=== PATIENT | female | born 1930 | race Caucasian/White ===

== ENCOUNTER 2019-06-17 11:06 | Inpatient (IN) | payer MEDICARE, OTHER ==
[~2019-06-17] VITALS: Ht 160 cm; Wt 59.1 kg
[2019-06-17] MEDS ORDERED: GABAPENTIN300 MG PO (11:43)
[2019-06-17] MEDS ORDERED: LEVOXYL125 MCG (11:44)
[2019-06-17] MEDS ORDERED: MIRALAX17 GM PO (11:45)
[2019-06-17] MEDS ORDERED: LISINOPRIL20 MG (11:45)
[2019-06-17] MEDS ORDERED: OS-CAL500 MG (11:46)
[2019-06-17] MEDS ORDERED: PAMELOR10 MG (11:47)
[2019-06-17] MEDS ORDERED: PAMELOR10 MG PO (11:48)
[2019-06-17] MEDS ORDERED: PROTONIX40 MG PO (11:49)
[2019-06-17] MEDS ORDERED: VITAMIN D10000 UNI1 ×2 (11:51→11:52)
[2019-06-17] MEDS ORDERED: VOLTAREN100 GM (11:52)
[2019-06-17] MEDS ORDERED: ZOLOFT100 MG (11:53)
[2019-06-17 13:54] VITALS: BP 148/89; BMI 22.4
--- NOTE | 2019-06-17 16:50 | NUR ---
PATIENT ARRIVED TO UNIT VIA EMS FROM [facility]. PT STABLE AT TIME OF ADMIT. PT HAS INTERMITT CONFUSION. PT WAS ALERT TO SELF ONLY AT THIS TIME. PT CAN STAND AND AMBULATE SHORT DISTANCES WITH ASSIST. CODE STATUS: DNR. CODE WORD GIVEN TO DAUGHTER. FLU SHOT: 03/03/19. ARM BANDS PLACED. W/C ASSIST.
[2019-06-17 17:22] LABS: BILIRUBIN NEGATIVE (NEGATIVE); GLUCOSE NEGATIVE (NEGATIVE); KETONE NEGATIVE (NEGATIVE); NITRITE NEGATIVE (NEGATIVE); UROBILINOGEN NORMAL (NORMAL)
[2019-06-17 20:00] VITALS: BP 153/68
[2019-06-18 07:06] LABS: ALBUMIN 3.5 g/dL (3.4-5.0); ANION GAP 12.1 mmol/L (8-16); BILIRUBIN - TOTAL 0.44 mg/dL (0.2-1.3); CALCIUM 8.9 mg/dL (8.5-10.1); CARBON DIOXIDE 28.2 mmol/L (21.0-32.0); CHOL - HDL RATIO 3.6 ratio (2.3-4.1); CREATININE - SERUM 1.1 mg/dL (0.6-1.3); LDL-HDL RATIO 2.1 ratio (1.5-3.5); POTASSIUM - SERUM 3.3 mmol/L (3.5-5.1); PROTEIN - SERUM 7.5 g/dL (6.4-8.2); THYROID STIMULATING HORMONE 6.18 uIU/mL (0.36-3.74)
--- NOTE | 2019-06-18 08:55 | NUR ---
The patient asked "Can I please have something to eat, I haven't eaten in 24 hours." Tried to explain to her that the patient ate yesterday dinner. She denies ever eating since she got her. She has poor insight into her situation. Provide prescribed meds. The patient is in a w/c and she is very confused. She is oriented to self only. Provide prescribed meds. Redirect as needed. She has not shown any aggression today. Continue POC.
[2019-06-18 13:00] VITALS: Ht 160 cm; Wt 59.1 kg
--- NOTE | 2019-06-19 00:22 | NUR ---
B.) PT IS ALERT AND ORIENTED TO SELF AND SITUATION. SHE IS PLEASANT WITH PEERS. SHE IS CALM AND COOPERATIVE WITH STAFF. SHE IS ABLE TO MAKE HER NEEDS KNOWN AND AMBULATE WITH WHEELCHAIR. I.) PROVIDED PM MEDICATIONS PRESCRIBED. REDIRECT OFTEN. R.) COMPLIANT WITH ALL MEDICATIONS. EASY TO REDIRECT. P.) WILL CONTINUE TO MONITOR.
--- NOTE | 2019-06-19 07:02 | NUR ---
The patient is awake, she is sitting in the w/c, she is confused, she is oriented to self. She has poor insight into her situation. She says she doesn't need to be here then she says "I know you hear that all the time." She has not been aggressive this am. Provide prescribed meds. Continue POC.
--- NOTE | 2019-06-19 13:53 | PN ---
PATIENT:DEBI MAGALLANES MEDICAL RECORD: [id number] LOCATION:[facility] [place] ADMISSION DATE: 06/17/19 PROGRESS NOTE DATE OF SERVICE: 06/18/2019 SUBJECTIVE: Case was discussed with staff. The patient was sitting in a wheelchair at the table. The patient responds with her own and is conversive, stating that she feels okay. OBJECTIVE: Her general appearance is appropriate. Her orientation, she is alert to person, disoriented to place, time or situation. Her speech is soft, low tone, low volume. Her associations are loose. Her eye contact was good. Her judgment and insight are impaired. Thought and concentration is tangential. Her mood is depressed and anxious, easily agitated. Her affect is flat and narrow in range. Her anxiety is moderate. Her memory is poor for both recent and remote events. The patient does not appear to be attending with any visual or auditory hallucinations. Her judgment is poor. Impulsivity is high. ASSESSMENT: Major neurocognitive disorder of the Alzheimer's type. PLAN: Continue to monitor the patient's mood, thoughts, intolerance to medications to help keep the patient safe. We will continue to monitor her sleep and her appetite and assist her with her activities of daily living. Dictated By: Alondra Martinez APN I have interviewed/examined the above patient and agree with these documented findings. TRANSINT:[id number] Voice Confirmation ID: [id number] DOCUMENT ID: [id number] YOSEF REED MD at 1658 at 1353 CC: [id number] DICTATION DATE: 06/18/19 1740 WATER OPERATOR: 06/19/19 0059 ADM IN [facility] [address] [place] [address]
[2019-06-19 15:35] LABS: BASOPHILS 0.1 % (0-2); EOSINOPHILS 1.4 % (0-7); HEMATOCRIT 33.5 % (36.0-48.0); HEMOGLOBIN 10.3 g/dL (12-16); IMMATURE GRANULOCYTES 0.1 % (0-5); LYMPHOCYTES 13.5 % (15-50); MCH 30.7 pg (26.0-34.0); MCHC 30.7 g/dL (31.0-37.0); MEAN PLATELET VOLUME 9.3 fL (7.4-10.4); MONOCYTES 7.6 % (2-11); NEUTROPHILS 77.3 % (40-80); PLATELET COUNT 338 10x3/uL (130-400); RBC 3.35 10x6/uL (4.00-5.40); RDW 16.9 % (11.5-14.5); WBC 6.9 10x3/uL (4.8-10.8)
--- NOTE | 2019-06-19 19:52 | NUR ---
RECEIVED IN DAYROOM. SITTING IN A RECLINER WITH PEERS AT HIS SIDE. CALM AND COOPERATIVE WITH CARE AND ASSESSMENT. NO SIGNS OF AGGRESSION. REDIRECT AND REORIENT NEEDED. CONTINUE TO SIT CALMLY IN DAYROOM. CONTINUE PLAN OF CARE
--- NOTE | 2019-06-20 07:51 | NUR ---
The patient is awake and alert she is pleasnt, but she c/o her entire body hurts and that she has a sore throat. The patient is up in a w/c and she can self propel. Encourage group participation and provide prescribed meds. the patient is confused and she has poor insight into her situation. Provide prescribed meds.
--- NOTE | 2019-06-20 16:58 | PSY ---
PATIENT NAME:DEBI MAGALLANES MEDICAL RECORD: [id number] : 34 LOCATION:[facility] [place] ADMISSION DATE: 06/17/19 ACCOUNT: [id number] PSYCHIATRIC EVALUATION DATE OF EVALUATION: 06/17/19 IDENTIFYING DATA: The patient is 88 years old and she is admitted to the hospital on a voluntary basis. CHIEF COMPLAINT: Agitation. HISTORY OF PRESENT ILLNESS: The patient is referred to us by family. Apparently, she has been confused, agitated, and aggressive. Unfortunately, the patient is not able to provide much in the way of useful information. She is only oriented to person and at least when I speak to her she is calm. PAST MEDICAL HISTORY: Significant for hypertension, osteoarthritis, and hypothyroidism. PAST PSYCHIATRIC HISTORY: Unknown; however, the patient is taking an antidepressant medication. FAMILY HISTORY: Unknown. ALLERGIES: TETANUS TOXOID, CODEINE AND TRAMADOL. CURRENT MEDICATIONS: Include Pamelor, Zoloft, Protonix, MiraLax, gabapentin, and lisinopril. SOCIAL HISTORY: The patient is from [place]. She is single and has no children. I do not know if she has been in the past. She is only partially oriented. She does have a high school education and did work as a court advocate. She has no history of drug or alcohol abuse. MENTAL STATUS EXAMINATION: The patient is awake, alert and oriented to person and place, but not to time or situation. Her mood is flat. Her affect is constricted. Thought processes are disorganized. Memory, concentration, and abstraction abilities are moderately impaired and she denies any active intent to harm herself or others as well as any overt psychotic symptoms. ASSESSMENT: AXIS I: Major neurocognitive disorder of the Alzheimer's type. AXIS II: None. AXIS III: Hypertension, osteoarthritis, hypothyroidism. AXIS IV: Moderate. AXIS V: Global assessment of functioning is 30. PLAN: At this time, the patient is admitted to the hospital secondary to aggressive behavior. She will be monitored for clinical changes associated with this. Her long-term prognosis is guarded. TRANSINT:[id number] Voice Confirmation ID: [id number] DOCUMENT ID: [id number] YOSEF REED MD at 1659 CC: [id number] DICTATION DATE: 06/17/19 1527 CHIROPRACTIC PRACTICE MANAGER: 06/17/19 1555 ADM IN [facility] [address] [facility]
--- NOTE | 2019-06-20 16:58 | PN ---
PATIENT:DEBI MAGALLANES MEDICAL RECORD: [id number] LOCATION:[facility] [place] ADMISSION DATE: 06/17/19 PROGRESS NOTE DATE OF SERVICE: 06/19/2019 SUBJECTIVE: The case was discussed with staff. The patient is sitting in a wheelchair at the table. The patient is conversive and she states that she would like to have an state's attorney because she has been plugged off. 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 OBJECTIVE: Her general appearance is slightly disheveled. She is oriented to person and alert, disoriented to place, time or situation. Her speech is soft, low tone, low volume. Her associations are intact. Her eye contact is good. Her judgment and insight are impaired. Impulsivity is high. Her thought and concentration, she is distracted with tangential thought. Her mood is depressed and anxious. Her affect is flat and narrow in range. Anxiety is mild. Her memory is poor for both recent and remote events. The patient does not appear to be attending to visual or auditory hallucinations. ASSESSMENT: No change in diagnosis PLAN: We will continue to monitor the patient's mood, monitor her sleep, her sleep tolerance to medications, and to help keep the patient safe. We will continue to monitor her sleep, her appetite and assist her with her activities of daily living. Dictated By: Alondra Martinez APN I have interviewed/examined the above patient and agree with these documented findings. TRANSINT:[id number] Voice Confirmation ID: [id number] DOCUMENT ID: [id number] YOSEF REED MD at 1658 at 1717 CC: [id number] DICTATION DATE: 06/19/19 1432 WARDROBE STYLIST: 06/19/19 2153 ADM IN [facility] [address] [place] [address]
--- NOTE | 2019-06-20 19:50 | NUR ---
RECEIVED IN DAYROOM. SITTING IN A CHAIR WITH PEERS AT HER SIDE. CALM AND COOPERATIVE WITH CARE. NO SIGNS OF AGGRESSION. REDIRECT AND REORIENT NEEDED. RESTING QUIETLY IN BEDROOM AT THIS TIME. CONTINUE PLAN OF CARE
--- NOTE | 2019-06-21 08:30 | NUR ---
RECEIVED IN HALLWAY OUTSIDE OF NURSES STATION. CALM AND COOPERATIVE WITH CARE AND ASSESSMENT. NO BEHAVIORS. REDIRECT AND REORIENT NEEDED. EATING BREAKFAST AT THIS TIME. CONTINUE PLAN OF CARE.
--- NOTE | 2019-06-21 14:48 | PN ---
PATIENT:DEBI MAGALLANES MEDICAL RECORD: [id number] LOCATION:[facility] ADMISSION DATE: 06/17/19 PROGRESS NOTE DATE OF SERVICE: 06/20/2019 SUBJECTIVE: The case was discussed with staff. The patient is sitting in a wheelchair. The patient is conversive and is pleasantly confused. The patient does report that she has a sore in her mouth, but is able to still eat just a little slower. OBJECTIVE: Her general appearance is slightly disheveled. She is oriented to person, disoriented to place, time and situation. Her speech is soft, low tone, low volume. Her associations are loose. Her eye contact is good. Her judgment and insight are impaired with impulsivity high. Her thought concentration is distracted with tangential thought. Her mood is depressed and anxious. Her affect is flat and narrow in range. Her anxiety is mild. Her memory is poor for both recent and remote events. The patient does not appear to be attending to visual or auditory hallucination. ASSESSMENT: No change from previous diagnosis. PLAN: We will continue to monitor the patient's mood and work to stabilize her aggression, her impulsivity, her mood, and her thought. TRANSINT:[id number] Voice Confirmation ID: [id number] DOCUMENT ID: [id number] YOSEF REED MD at 1448 at 1236 CC: [id number] DICTATION DATE: 06/20/19 1546 VP TALENT MANAGEMENT: 06/20/19 2328 ADM IN [place] [id number] [place] [address]
--- NOTE | 2019-06-21 20:01 | NUR ---
RECEIVED IN DAYROOM. SITTING QUIETLY IN A CHAIR WITH PEERS AT HER SIDE. CALM AND COOPERATIVE WITH CARE AND ASSESSMENT. NO SIGNS OF AGGRESSION. REDIRECT AND REORIENT NEEDED. CONTINUES TO SIT CALMLY. CONTINUE PLAN OF CARE
[2019-06-21 20:49] VITALS: BP 122/64
[2019-06-22 08:33] VITALS: BP 121/71
--- NOTE | 2019-06-22 10:43 | NUR ---
Nutrition Follow-up: Diet: Cardiac, Regular texture PO intake: ~58% average x last 10 meals Last BM: 06/22/19. WT: 125# (06/20/19); Admit WT: 126# (06/17/19) Meds noted: miralax. Labs noted. Recommend continue current diet, may consider liberalizing diet to regular 2/2 advanaced age and subpar PO intake. Will add oral nutrition supplements. Encourage PO intake. RD following.
--- NOTE | 2019-06-22 15:04 | PN ---
PATIENT:DEBI MAGALLANES MEDICAL RECORD: [id number] LOCATION:[facility] [place] ADMISSION DATE: 06/17/19 PROGRESS NOTE DATE OF SERVICE: 06/21/2019 SUBJECTIVE: The patient's case was discussed with staff. She has no new complaint. OBJECTIVE: The patient has not been aggressive today. She is eating reasonably well and it does require a great deal of encouragement from the staff to convince her to eat adequately. ASSESSMENT: Dementia. PLAN: The patient will be maintained on current medications, which I have reviewed. Her long-term prognosis is guarded. TRANSINT:[id number] Voice Confirmation ID: [id number] DOCUMENT ID: [id number] YOSEF REED MD at 1504 CC: [id number] DICTATION DATE: 06/21/19 171 V BELT SKIVER: 06/21/[address] [facility] [address] [place] [id number]
--- NOTE | 2019-06-22 19:49 | NUR ---
RECEIVED IN DAYROOM. SITTING IN A CHAIR WITH PEERS AT HER SIDE. CALM AND COOPERATIVE WITH CARE AND ASSESSMENT. NO SIGNS OF AGGRESSION. REDIRECT AND REORIENT NEEDED. CONTINUES TO REST QUIETLY IN DAYROOM. CONTINUE PLAN OF CARE
[2019-06-22 20:32] VITALS: BP 131/71
--- NOTE | 2019-06-23 08:30 | NUR ---
RECEIVED IN HALLWAY OUTSIDE OF NURSES STATION. CALM AND COOPERATIVE WITH CARE AND ASSESSMENT. NO BEHAVIORS. REDIRECT AND REORIENT NEEDED. WAITING FOR BREAKFAST AT THIS TIME. CONTINUE PLAN OF CARE.
[2019-06-23 10:21] VITALS: BP 147/87
--- NOTE | 2019-06-23 13:50 | PN ---
PATIENT:DEBI MAGALLANES MEDICAL RECORD: [id number] LOCATION:REGINA [place] ADMISSION DATE: 06/17/19 PROGRESS NOTE DATE OF SERVICE: 06/22/2019 SUBJECTIVE: The patient's case was discussed with staff. She has no new complaint. OBJECTIVE: The patient has pretty limited insight about her situation. She is only partially oriented. She has been in good behavioral control with no significant disruptive behaviors. ASSESSMENT: Dementia. PLAN: Current medicines have been reviewed and will be maintained. Her long-term prognosis is guarded. TRANSINT:[id number] Voice Confirmation ID: [id number] DOCUMENT ID: [id number] YOSEF REED MD at 1350 CC: [id number] DICTATION DATE: 06/22/19 1542 SHOES SALESPERSON: 06/22/19 1808 ADM IN [facility] [address] [place] [address]
--- NOTE | 2019-06-23 20:53 | NUR ---
RECEIVED IN HALLWAY OUTSIDE OF NURSES STATION. CALM AND COOPERATIVE WITH CARE AND ASSESSMENT. NO BEHAVIORS THIS EVENING. REDIRECT AND REORIENT NEEDED. RESTING IN BED WITH EYES CLOSED AT THIS TIME. CONTINUE PLAN OF CARE.
[2019-06-23 21:59] VITALS: BP 150/64
--- NOTE | 2019-06-24 09:01 | PN ---
PATIENT:DEBI MGAALLANES MEDICAL RECORD: [id number] LOCATION:REGINA [place] ADMISSION DATE: 06/17/19 PROGRESS NOTE DATE OF SERVICE: 06/23/2019 SUBJECTIVE: The patient's case was discussed with staff. She has no new complaint. OBJECTIVE: The patient is in good behavioral control. She has pretty limited insight about her situation and is tolerating her medicines well. ASSESSMENT: No change in diagnoses. PLAN: Brief supportive and educational interventions were made. Long-term prognosis is guarded. TRANSINT:[id number] Voice Confirmation ID: [id number] DOCUMENT ID: [id number] YOSEF REED MD at 0901 CC: [id number] DICTATION DATE: 06/23/19 1504 ASSOCIATE ENTERTAINMENT EDITOR: 06/23/19 2328 ADM IN [id number] [place] [address]
--- NOTE | 2019-06-24 11:11 | NUR ---
Nutrition Follow-up: Chart reviewed. Noted patient with ulcer in gum area and pain with eating. Diet: Cardiac + Ensure TID PO intake: ~50% average x last 12 meals; drinking some of the Ensure. Last BM: 06/23/19. WT: 125# (06/20/19); Admit WT: 126.6# (06/17/19) Meds noted: orajel, miralax. Labs noted. Recommend continue current diet and oral nutrition supplement. Hopefully PO intake will improve once mouth ulcer resolves. May consider liberalizing diet to regular to encourage PO intake. MD, consider appetite stimulant if PO intake does not improve. RD following.
[2019-06-24 11:40] VITALS: BP 156/89
--- NOTE | 2019-06-24 16:26 | NUR ---
PT SITTING IN CHAIR WITH FEET PROPPED UP AT THIS TIME. NO ACUTE DISTRESS NOTED AT THIS TIME. PT HAS BEEN COOPERATIVE AND QUIET AT THIS TIME. PT IS COMPLIANT WITH MEDS, VITALS AND ASSESSMENTS. NO DISTRESS NOTED. PT HAS NO BEHAVIORS NOTED. CHAIR ALARM IN PLACE AND ACTIVE. WILL CONT PLAN FO CARE.
[2019-06-24 20:44] VITALS: BP 136/53
--- NOTE | 2019-06-24 21:59 | NUR ---
B.) PT IS ALERT AND ORIENTED TO SELF AND SITUATION ONLY. SHE IS RECEIVED IN THE DAYROOM IN HER WHEELCHAIR. SHE IS OBSERVED SOCIALIZING WITH PEERS. SHE IS CALM AND COOPERATIVE WITH STAFF. I.) PROVIDED PM MEDICATIONS PRESCRIBED. REDIRECT NEEDED. R.) COMPLIANT WITH ALL MEDICATIONS. EASY TO REDIRECT. P.) WILL CONTINUE TO MONITOR.
[2019-06-25 10:29] VITALS: BP 172/95
--- NOTE | 2019-06-25 13:56 | NUR ---
ALERT, CALM, PLEASANT AND COOPERATIVE. NO AGGRESSION NOTED. MEDS ADMIN PER ORDERS WITH COMPLETE MED COMPLIANCE NOTED. NO ADVERSE BEHAVIORS NOTED. CONT PLAN OF CARE DIRECTED. SHOWER GIVEN FOLLOWING INCONTINENCE OF STOOL.
--- NOTE | 2019-06-25 14:02 | NUR ---
ALERT, CALM, COOPERATIVE, POLITE. COMPLIANT WITH MEDICATIONS. NO ADVERSE BEHAVIORS NOTED. CONT. POC DIRECTED.
[2019-06-25 20:00] VITALS: BP 124/65
--- NOTE | 2019-06-25 22:55 | NUR ---
PATIENT INTERACTS WELL WITH 1-2 OTHER PATIENTS, QUIET, TAKES MEDS WITHOUT DIFFICULTY, NO AGGRESSION NOTED, MAKES NEEDS KNOWN. WILL FOLLOW POC
--- NOTE | 2019-06-26 07:47 | NUR ---
The patient is awake and she is pleasant she has poor insight into her situation. She is oriented to person and place. She is able to self propel in a w/c. Provide prescribed meds. The patient is compliant with meds. She has poor short term memory. Continue POC.
[2019-06-26 10:46] VITALS: BP 140/70
[2019-06-26 20:48] VITALS: BP 127/48
--- NOTE | 2019-06-26 20:54 | NUR ---
PATIENT WAS SITTING QUIETLY IN DAYROOM, SHE DOES INTERACT WITH ONE OTHER PATIENT QUITE WELL, COMPLIANT WITH MED, NO ADVERSE REACTION NOTED, WILL FOLLOW POC
--- NOTE | 2019-06-27 09:11 | NUR ---
RECEIVED IN HALLWAY OUTSIDE OF NURSES STATION. CALM AND COOPERATIVE WITH CARE AND ASSESSMENT. NO BEHAVIORS THIS MORNING. REDIRECT AND REORIENT NEEDED. EATING BREAKFAST AT THIS TIME. CONTINUE PLAN OF CARE.
[2019-06-27 10:30] VITALS: BP 133/61
--- NOTE | 2019-06-27 14:39 | PN ---
PATIENT:DEBI MAGALLANES MEDICAL RECORD: [id number] LOCATION:REG[facility] ADMISSION DATE: 06/17/19 PROGRESS NOTE DATE OF SERVICE: 06/25/2019 SUBJECTIVE: The patient's case was discussed with staff. The patient did eat more this morning and she did sleep through the night. She is pleasantly confused. OBJECTIVE: The patient's general appearance is appropriate for an inpatient stay. She is oriented to person, disoriented to place, time, and situation. Her speech is soft, low tone, low volume. Her associations are loose. Her eye contact is good. Her impairment and insight are impaired, impulsivity high. Her judgment is poor. Her thought and concentration is easily distracted. Her mood is depressed. Her affect is restricted. Her anxiety is mild. She has a poor memory for both remote and recent events. The patient does not appear to be attending to either visual or auditory hallucinations. ASSESSMENT: No change in diagnosis. PLAN: The patient is to return to [place]. The patient appears to be tolerating her meds. We will continue with current medication regimen for stabilization of mood. Dictated By: Alondra Martinez APN I have interviewed/examined the above patient and agree with these documented findings. TRANSINT:[id number] Voice Confirmation ID: [id number] DOCUMENT ID: [id number] YOSEF REED MD at 1443 at 1439 CC: [id number] DICTATION DATE: 06/26/19 1252 ASSAULT BOAT [place]IN: 06/26/19 1641 ADM IN [facility] [address] [place] [id number]
--- NOTE | 2019-06-27 14:39 | PN ---
PATIENT:DEBI MAGALLANES MEDICAL RECORD: [id number] LOCATION:REG[facility] ADMISSION DATE: 06/17/19 PROGRESS NOTE DATE OF SERVICE: 06/25/2019 DATE OF SERVICE: 06/25/2019 SUBJECTIVE: The patient's case was discussed with staff. The patient has a decrease in appetite. She did sleep through the night. OBJECTIVE: The patient's general appearance is appropriate for inpatient stay. Her orientation, she is alert, disoriented to person, place, time and situation. Her speech is soft, low tone, low volume. Her associations are loose. Her eye contact is good. Her impairment and insight are impaired. Her judgment is poor. Her thought and concentration, she is easily distracted. Her mood is depressed. Her affect is restricted. Her anxiety is mild. She has poor memory for both remote and recent events. The patient does not appear to be attending to either visual or auditory hallucination. ASSESSMENT: No change in diagnosis. PLAN: The patient to return to [place]; however, she will be changing from independent into assisted living. The patient although has no family, does have care providers that are helping her with this transition. There has been a delay into the assessment process related to the coronavirus. The patient appears to be tolerating her medications. Dictated By: Alondra Martinez APN I have interviewed/examined the above patient and agree with these documented findings. TRANSINT:[id number] Voice Confirmation ID: [id number] DOCUMENT ID: [id number] YOSEF REED MD at 1443 at 1439 CC: [id number] DICTATION DATE: 06/25/19 1256 DRAPERY CUTTER MACHINE: 06/25/19 1413 ADM IN [facility] [address] [place] [address]
[2019-06-27 20:00] VITALS: BP 133/66
--- NOTE | 2019-06-28 01:44 | NUR ---
B) Patient is alert and oriented to person, place and time, calm and cooperative I) Administered scheduled medications as ordered, monitored for needs and wants, R) Medication compliant, pleasant and friendly toward staff, P) Continue plan of care.
--- NOTE | 2019-06-28 09:00 | NUR ---
RECEIVED IN HALLWAY OUTSIDE OF NURSES STATION. CALM AND COOPERATIVE WITH CARE AND ASSESSMENT. PLEASANT. NO BEHAVIORS. REDIRECT AND REORIENT NEEDED. EATING BREAKFAST AT THIS TIME. CONTINUE PLAN OF CARE.
[2019-06-28 09:13] VITALS: BP 153/72
--- NOTE | 2019-06-28 14:43 | PN ---
PATIENT:DEBI MAGALLANES MEDICAL RECORD: [id number] LOCATION:REGINA [place] ADMISSION DATE: 06/17/19 PROGRESS NOTE DATE OF SERVICE: 06/24/2019 SUBJECTIVE: The patient's case was discussed with staff. She has no new complaint. OBJECTIVE: The patient is in good behavioral control. She is severely impaired cognitively and certainly needs 30-ofzx-c-day supervision. There has been no aggressive behavior and if this level of improvement continues, I think she could reasonably be transitioned back to the snf soon. TRANSINT:[id number] Voice Confirmation ID: [id number] DOCUMENT ID: [id number] YOSEF REED MD at 1443 CC: [id number] DICTATION DATE: 06/24/19 1309 COURTESY VAN DRIVER: 06/24/19 1358 ADM IN [facility] [address] [place] [address]
--- NOTE | 2019-06-28 14:43 | PN ---
PATIENT:DEBI MAGALLANES MEDICAL RECORD: [id number] LOCATION:REGINA [facility] ADMISSION DATE: 06/17/19 PROGRESS NOTE DATE OF SERVICE: 06/25/2019 SUBJECTIVE: The patient's case was discussed with staff. The patient did eat more today. She also slept and is sitting in a chair and is conversing with a couple of the other patients. She is pleasantly confused. OBJECTIVE: The patient's general appearance is appropriate for inpatient stay. She is oriented to person, disoriented to place, time and situation. Her speech is soft, low tone low volume. Her associations are loose. Her eye contact is good. Her impairment and insight are impaired. Her impulsivity is moderate. Her judgment is poor. Her thought and concentration is easily distracted. Her mood is depressed. Her affect is restricted. Her anxiety is mild. She has poor memory for both remote and recent events. The patient does not appear to be attending to either visual or auditory hallucinations. ASSESSMENT: No change in diagnosis. PLAN: The patient is to return to [place], [facility] and home medication adjustment on her Namenda. The patient does appear to be tolerating her meds. We will continue to monitor for stabilization of mood and for her safety and plan for a discharge. Dictated By: Alondra Martinez APN I have interviewed/examined the above patient and agree with these documented findings. TRANSINT:[id number] Voice Confirmation ID: [id number] DOCUMENT ID: [id number] YOSEF REED MD at 1443 CC: [id number] DICTATION DATE: 06/27/19 1438 BOX SEALING MACHINE CATCHER: 06/27/19 2114 ADM IN [place] [id number] [place] [address]
[2019-06-28] MEDS ORDERED: VOLTAREN100 GM TOPICAL (16:33)
[2019-06-28] MEDS ORDERED: NAMENDA5 MG PO (16:33)
[2019-06-28] MEDS ORDERED: FOLIC ACID1 MG PO (16:34)
--- NOTE | 2019-06-28 22:36 | NUR ---
B.) PT IS ALERT AND ORIENTED TO SELF AND SITUATION AT TIMES. SHE IS RECEIVED IN THE DAYROOM. SHE IS PLEASANT AND COOPERATIVE WITH STAFF. SHE CAN MAKE HER NEEDS KNOWN. I.) PROVIDED PM MEDICATIONS PRESCRIBED. REDIRECT NEEDED. R.) COMPLIANT WITH ALL MEDICATIONS. EASY TO REDIRECT. P.) WILL CONTINUE TO MONITOR.
[2019-06-29 06:43] VITALS: BP 111/66
[2019-06-29 10:10] VITALS: BP 147/77
--- NOTE | 2019-06-29 10:44 | NUR ---
PATIENT DISCHARGED TO [facility]. PATIENT TRANSPORTED VIA [facility]AN. REPORT GIVEN. DISCHARGE PAPERWORK FAXED TO [facility] AND PCP. HARD COPY SENT WITH PATIENT. MEDICATIONS SENT ELECTRONICALLY TO [facility]. BELONGINGS SENT WITH PATIENT.
--- NOTE | 2019-06-29 14:43 | PN ---
PATIENT:DEBI MAGALLANES MEDICAL RECORD: [id number] [facility] ADMISSION DATE: 06/17/19 PROGRESS NOTE DATE OF SERVICE: 06/28/2019 SUBJECTIVE: The patient's case was discussed with staff. She has no new complaint. OBJECTIVE: The patient is in good behavioral control. She is tolerating her medicines well. She denies that she would seek to harm herself or others. ASSESSMENT: Dementia. PLAN: The patient will be transitioned out of the hospital tomorrow. Her long-term prognosis is guarded. Brief supportive and educational interventions were made. TRANSINT:[id number] Voice Confirmation ID: [id number] DOCUMENT ID: [id number] YOSEF REED MD at 1443 CC: [id number] DICTATION DATE: 06/28/19 163 ABORIGINAL EDUCATION TEACHER: 06/28/19 191 DIS IN 06/29/19 [facility] [address] [place] [address]
== END 2019-06-29 10:45 | disposition home or self-care (01) | DRG 57 ==
LOC: D.PSYCH 11:06
PROVIDERS: Family Medicine; ADMIT Psychiatry & Neurology Psychiatry; ATTEND Psychiatry & Neurology Psychiatry
DX: G30.1 Alzheimer's disease with late onset (principal); F02.81 Dementia in other diseases classified elsewhere, unspecified severity, with behavioral disturbance; F32.9 Major depressive disorder, single episode, unspecified; I10 Essential (primary) hypertension; E78.00 Pure hypercholesterolemia, unspecified; I25.10 Atherosclerotic heart disease of native coronary artery without angina pectoris; K21.9 Gastro-esophageal reflux disease without esophagitis; R26.9 Unspecified abnormalities of gait and mobility; J44.9 Chronic obstructive pulmonary disease, unspecified; K59.00 Constipation, unspecified; G58.9 Mononeuropathy, unspecified; W05.0XXA Fall from non-moving wheelchair, initial encounter; M41.25 Other idiopathic scoliosis, thoracolumbar region; G35 Multiple sclerosis

== ENCOUNTER → 2020-06-27 17:51 | Outpatient (CLI) | payer SELFPAY ==
[2019-06-18 13:00] VITALS: BMI 22.3
[~2020-06-27 17:51] MED LIST: FOLIC ACID1 MG PO; GABAPENTIN300 MG PO; LEVOXYL125 MCG; LISINOPRIL20 MG; MIRALAX17 GM PO; NAMENDA5 MG PO; OS-CAL500 MG; PAMELOR10 MG; PAMELOR10 MG PO; PROTONIX40 MG PO; VITAMIN D10000 UNI1; VOLTAREN100 GM; VOLTAREN100 GM TOPICAL; ZOLOFT100 MG
[2020-06-27 19:47] LABS: BASOPHILS 0.6 % (0-2); EOSINOPHILS 3.7 % (0-7); HEMATOCRIT 30.4 % (36.0-48.0); IMMATURE GRANULOCYTES 0.3 % (0-5); LYMPHOCYTE ABS# 1.06 10x3/uL (1.18-3.74); MCH 30.1 pg (26.0-34.0); MCHC 29.6 g/dL (31.0-37.0); MCV 101.7 fL (80.0-100.0); MEAN PLATELET VOLUME 10.3 fL (7.4-10.4); NEUTROPHIL ABS# 4.38 10x3/uL (1.56-6.13); NEUTROPHILS 70.4 % (40-80); RBC 2.99 10x6/uL (4.00-5.40); RDW 17.9 % (11.5-14.5); WBC 6.2 10x3/uL (4.8-10.8)
[2020-06-27 19:54] LABS: PLATELET COUNT 443 10x3/uL (130-400)
[2020-06-27 20:08] LABS: ALBUMIN 2.7 g/dL (3.4-5.0); ANION GAP 13.5 mmol/L (8-16); BILIRUBIN - TOTAL 0.21 mg/dL (0.2-1.3); CALCIUM 8.7 mg/dL (8.5-10.1); CARBON DIOXIDE 27.9 mmol/L (21.0-32.0); CREATININE - SERUM 1.6 mg/dL (0.6-1.3); POTASSIUM - SERUM 4.4 mmol/L (3.5-5.1); PROTEIN - SERUM 6.1 g/dL (6.4-8.2); THYROID STIMULATING HORMONE 5.07 uIU/mL (0.36-3.74)
== END | disposition home or self-care (01) ==
LOC: D.LABREF 17:51
PROVIDERS: ATTEND Family Medicine
DX: D50.8 Other iron deficiency anemias (principal); D64.9 Anemia, unspecified

== ENCOUNTER → 2020-07-25 21:19 | Outpatient (CLI) | payer MEDICARE ==
[2019-06-18 13:00] VITALS: BMI 22.3
[2020-07-25 21:37] LABS: ANION GAP 17.3 mmol/L (8-16); CALCIUM 9.1 mg/dL (8.5-10.1); CARBON DIOXIDE 25.5 mmol/L (21.0-32.0); CREATININE - SERUM 1.6 mg/dL (0.6-1.3); POTASSIUM - SERUM 4.8 mmol/L (3.5-5.1)
[2020-07-25 21:45] LABS: HEMATOCRIT 21.8 % (36.0-48.0); LYMPHOCYTE ABS# 0.78 10x3/uL (1.18-3.74); MCH 29.7 pg (26.0-34.0); MCHC 30.3 g/dL (31.0-37.0); MCV 98.2 fL (80.0-100.0); MEAN PLATELET VOLUME 11.2 fL (7.4-10.4); NEUTROPHIL ABS# 7.81 10x3/uL (1.56-6.13); PLATELET COUNT 423 10x3/uL (130-400); RBC 2.22 10x6/uL (4.00-5.40); RDW 16.9 % (11.5-14.5); WBC 9.3 10x3/uL (4.8-10.8)
[2020-07-25 21:54] LABS: HEMOGLOBIN 6.6 g/dL (12-16)
[2020-07-25 22:58] LABS: LYMPHOCYTES 12 % (15-50); NEUTROPHILS 88 % (40-80); PLATELET ESTIMATE NORMAL
== END | disposition home or self-care (01) ==
LOC: D.LABREF 21:19
PROVIDERS: ATTEND Family Medicine
DX: D50.9 Iron deficiency anemia, unspecified (principal)

== ENCOUNTER → 2020-07-31 10:29 | Outpatient (CLI) | payer MEDICARE ==
[2019-06-18 13:00] VITALS: BMI 22.3
[~2020-07-31 10:29] MED LIST changes: +COLACE100 MG PO; +FERROUS SULFAT325 MG PO; +FUROSEMIDE40 MG PO; +K-DUR20 MEQ PO; +NORVASC5 MG PO
[2020-07-31 10:45] LABS: BASOPHILS 0.7 % (0-2); EOSINOPHILS 2.8 % (0-7); IMMATURE GRANULOCYTES 0.6 % (0-5); LYMPHOCYTE ABS# 1.34 10x3/uL (1.18-3.74); LYMPHOCYTES 19.4 % (15-50); MCH 29.7 pg (26.0-34.0); MCHC 30.8 g/dL (31.0-37.0); MCV 96.4 fL (80.0-100.0); MEAN PLATELET VOLUME 10.4 fL (7.4-10.4); MONOCYTES 7.7 % (2-11); NEUTROPHIL ABS# 4.75 10x3/uL (1.56-6.13); NEUTROPHILS 68.8 % (40-80); RDW 16.6 % (11.5-14.5); WBC 6.9 10x3/uL (4.8-10.8)
[2020-07-31 10:56] LABS: ANION GAP 9.3 mmol/L (8-16); CALCIUM 8.7 mg/dL (8.5-10.1); CARBON DIOXIDE 30.5 mmol/L (21.0-32.0); CREATININE - SERUM 1.2 mg/dL (0.6-1.3); POTASSIUM - SERUM 4.8 mmol/L (3.5-5.1)
[2020-07-31 11:23] LABS: HEMATOCRIT 18.5 % (36.0-48.0); HEMOGLOBIN 5.7 g/dL (12-16); PLATELET COUNT 328 10x3/uL (130-400); RBC 1.92 10x6/uL (4.00-5.40)
== END | disposition home or self-care (01) ==
LOC: D.LABREF 10:29
PROVIDERS: ATTEND Family Medicine
DX: I95.9 Hypotension, unspecified (principal)

== ENCOUNTER 2020-07-31 12:39 | Inpatient (IN) | payer MEDICARE ==
[~2020-07-31] VITALS: Ht 160 cm; Wt 68.0 kg
[~2020-07-31 12:39] MED LIST changes: -COLACE100 MG PO; -FERROUS SULFAT325 MG PO; -FUROSEMIDE40 MG PO; -K-DUR20 MEQ PO; -LEVOXYL125 MCG; +LEVOXYL125 MCG PO; -NORVASC5 MG PO; -OS-CAL500 MG; +OS-CAL500 MG PO
[2020-07-31] MEDS ORDERED: COLACE100 MG PO (13:30)
[2020-07-31] MEDS ORDERED: NORVASC5 MG PO (13:31)
[2020-07-31] MEDS ORDERED: FERROUS SULFAT325 MG PO (13:31)
[2020-07-31] MEDS ORDERED: K-DUR20 MEQ PO (13:32)
[2020-07-31] MEDS ORDERED: FUROSEMIDE40 MG PO (13:33)
--- NOTE | 2020-07-31 16:00 | NUR ---
ON BEDPAN. UNABLE TO VOID. STOOL FOR OCCULT BLOOD OBTAINED BY DIGITAL EXAM. HEMOCULT POSITIVE.
[2020-07-31 16:31] VITALS: BP 96/56
--- NOTE | 2020-07-31 16:31 | NUR ---
PT ARRIVED FROM ER AT THIS TIME, TRANSFERRED TO HOSPITAL BED, RR EVEN NON LABORED. PT AWAKE AND ALERT. CONFUSION NOTED WITH SOME QUESTIONS. PT ABLE TO EXPRESS WANTS/NEEDS. O2 INPLACE VIA NC. PT ASSISTED ON AND OFF BEDPAN. VS STABLE. EDUCATION PROVIDED REGARDING THE NEED FOR BLOOD TRANSFUSION. TELEPHONE CONSENT OBTAINED FROM POA. NO NEEDS BY PT . CLWR.
--- NOTE | 2020-07-31 17:05 | NUR ---
1ST UNIT OF BLOOD INTITIATED. PT LYING IN BED , RR EVEN NON LABORED. O2 IN PLACE. NO NEEDS VOICED. CLWR.
--- NOTE | 2020-07-31 19:20 | NUR ---
REPORT RECEIVED. PT A&O, UP IN BED RECEIVING BLOOD. NO S/S OF DISTRESS OBSERVED, RR EVEN AND UNLABORED ON 2L. BED LOCKED AND LOWERED. CL IN REACH. ASSESSMENT COMPLETED AT THIS TIME. WILL CONT POC.
[2020-07-31 21:59] VITALS: BP 131/51
--- NOTE | 2020-07-31 23:50 | NUR ---
2 UNIT OF BLOOD INFUSING NOW. VITALS STABLE. PT A&O. NO S/S OF DISTRESS OBSERVED. RR EVEN AND UNLABORED ON 2L. TEMP 98.2. PT DENIES NEEDS AT THIS TIME. WILL CONT BLOOD TRANSFUSION PER PROTOCOL.
[2020-08-01 01:20] VITALS: BP 104/54
[2020-08-01 05:20] VITALS: BP 130/65
[2020-08-01 06:01] LABS: BASOPHILS 0.2 % (0-2); EOSINOPHILS 1.5 % (0-7); HEMATOCRIT 22.2 % (36.0-48.0); IMMATURE GRANULOCYTES 0.7 % (0-5); LYMPHOCYTE ABS# 1.05 10x3/uL (1.18-3.74); LYMPHOCYTES 11.8 % (15-50); MCH 29.8 pg (26.0-34.0); MCHC 32.9 g/dL (31.0-37.0); MEAN PLATELET VOLUME 9.8 fL (7.4-10.4); MONOCYTES 7.7 % (2-11); NEUTROPHIL ABS# 6.93 10x3/uL (1.56-6.13); NEUTROPHILS 78.1 % (40-80)
[2020-08-01 06:12] LABS: MCV 90.6 fL (80.0-100.0); PLATELET COUNT 219 10x3/uL (130-400); RBC 2.45 10x6/uL (4.00-5.40); WBC 8.9 10x3/uL (4.8-10.8)
[2020-08-01 06:13] LABS: HEMOGLOBIN 7.3 g/dL (12-16)
[2020-08-01 06:16] LABS: % SATURATION 93 % (15-55); IRON 216 ug/dl (35-150); TOTAL IRON BIND CAPACITY 232 ug/dl (260-445)
[2020-08-01 06:20] LABS: UNSAT IRON BIND CAPACITY 16 ug/dl (150-375)
--- NOTE | 2020-08-01 07:18 | NUR ---
NOTIFIED DR POOLE REGARDING HEMOGLOBIN RESULT. NO NEW ORDERS.
--- NOTE | 2020-08-01 08:05 | NUR ---
AM MEDS GIVEN AT THIS TIME. PT REPOSITIONED , RR EVEN NON LABORED. NO NEEDS VOICED. CLWR.
[2020-08-01 11:00] VITALS: BP 124/73
--- NOTE | 2020-08-01 11:04 | NUR ---
1ST UNIT OF BLOOD INTIATED. VS STABLE. PRE MEDS GIVEN PER MD ORDER. PT LYING IN BED WITH HOB RAISED, RR EVN NON LABORED.
--- NOTE | 2020-08-01 16:18 | NUR ---
ENCOURAGED PT TO DRINK HER LENORA , PT STATES UNDERSTANDING AND IS DRINKING IT WELL. NO NEEDS VOICED. CLWR.
[2020-08-01 16:31] VITALS: BP 123/78
[2020-08-01 17:29] LABS: BASOPHILS 0.3 % (0-2); EOSINOPHILS 2.5 % (0-7); IMMATURE GRANULOCYTES 0.7 % (0-5); LYMPHOCYTE ABS# 0.88 10x3/uL (1.18-3.74); LYMPHOCYTES 11.5 % (15-50); MCH 30.1 pg (26.0-34.0); MCHC 33.6 g/dL (31.0-37.0); MCV 89.3 fL (80.0-100.0); MEAN PLATELET VOLUME 9.8 fL (7.4-10.4); MONOCYTES 7.8 % (2-11); NEUTROPHIL ABS# 5.92 10x3/uL (1.56-6.13); NEUTROPHILS 77.2 % (40-80); PLATELET COUNT 204 10x3/uL (130-400); RDW 15.5 % (11.5-14.5); WBC 7.7 10x3/uL (4.8-10.8)
[2020-08-01 18:26] LABS: HEMATOCRIT 31.8 % (36.0-48.0); HEMOGLOBIN 10.7 g/dL (12-16); RBC 3.56 10x6/uL (4.00-5.40)
--- NOTE | 2020-08-01 19:22 | NUR ---
PT ALERT BUT CONFUSED. SHORT TERM MEMORY. PREFORMED COMPLEE LINEN CHANGE. VSS. RR E/U. 96% 2LNC. PT IS BEING ENCOURGED TO DRINK GO-LIGHTLY BY AID AND NURSE. BED LOW CAll light within reach. WILL CONTINUE TO MONITOR.
[2020-08-02 01:48] VITALS: BP 150/74
--- NOTE | 2020-08-02 05:00 | NUR ---
PT HAD LARGE BLACK TARRY STOOL. PT RECIEVED FULL BEDBATH AND LINEN CHANGE. PT NPO SINCE MIDNIGHT FOR EGD/COLONOSCOPY. VSS. R/R E/U. NO S/S OF DISTRESS. BED LOW CALL LIGHT WITHIN REACH. WILL CINTINUE TO MONITOR.
--- NOTE | 2020-08-02 05:08 | NUR ---
I have reviewed this patient and I concur with the Shift Assessment completed by the Licensed Practical Nurse today this shift.
[2020-08-02 05:50] VITALS: BP 97/54
[2020-08-02 06:15] LABS: BASOPHILS 0.2 % (0-2); EOSINOPHILS 2.2 % (0-7); HEMATOCRIT 29.1 % (36.0-48.0); HEMOGLOBIN 9.5 g/dL (12-16); IMMATURE GRANULOCYTES 0.5 % (0-5); LYMPHOCYTE ABS# 0.82 10x3/uL (1.18-3.74); LYMPHOCYTES 9.4 % (15-50); MCH 29.2 pg (26.0-34.0); MCHC 32.6 g/dL (31.0-37.0); MCV 89.5 fL (80.0-100.0); NEUTROPHIL ABS# 7.03 10x3/uL (1.56-6.13); NEUTROPHILS 80.7 % (40-80); PLATELET COUNT 218 10x3/uL (130-400); RBC 3.25 10x6/uL (4.00-5.40); RDW 15.8 % (11.5-14.5); WBC 8.7 10x3/uL (4.8-10.8)
--- NOTE | 2020-08-02 07:49 | NUR ---
PT OFF FLOOR FOR COLONOSCOPY AND EGD. WILL GIVE AM MEDS WHEN PT ARRIVES BACK.
--- NOTE | 2020-08-02 09:07 | NUR ---
PT ARRIVED FROM EGD AT THIS TIME, UNABLE TO PERFORM COLONSCOPY. PT REFUSES TO TAKE MEDS AT THIS TIME, PROTONIX INFUSION STARTED. NO FURTHER NEEDS VOICED. PT AWAKE AND ALERT, NO NEDES VOICED. CLWR.
[2020-08-02 09:13] LABS: ERYTHROPOIETIN 115.4 mIU/mL (2.6-18.5)
--- NOTE | 2020-08-02 10:59 | NUR ---
SPOKE WITH PT FAMILY MEMBER AT THIS TIME, JADIEL WHITE.
[2020-08-02 11:39] VITALS: BP 119/65
--- NOTE | 2020-08-02 14:19 | NUR ---
PT HAVING CONFUSION, BECOMING IRRITATED. ATTEMPTED TO REORIENT PT, PT STATES UNDERSTANDING BUT WILL ASK SAME QUESTION MULITPLE TIMES. PT GIVEN WARM BLANKET, ATTEMPTED TO CALL ROMEO MICHAEL BUT BUSY SIGNAL WAS GIVEN. EDUCATED PT TO STAY IN BED TO AVOID FALLING. PLAN OF CARE REVIEWED WITH PT. NO NEEDS VOICED. CLWR.
[2020-08-02 16:15] VITALS: BP 130/76
--- NOTE | 2020-08-02 19:20 | NUR ---
REPORT RECEIVED, PT A&O UP IN BED WATCHING TV. NO S/S OF DISTRESS OBSERVED. RR EVEN & UNLABORED ON 2L. BED LOCKED AND LOWERED, CL IN REACH. ASSESSMENT COMPLETE. WILL CONT POC.
[2020-08-02 19:46] VITALS: BP 143/72
[2020-08-02 23:25] VITALS: BP 145/73
[2020-08-03 05:09] VITALS: BP 133/74
[2020-08-03 07:07] LABS: BASOPHILS 0.5 % (0-2); EOSINOPHILS 2.7 % (0-7); HEMATOCRIT 27.1 % (36.0-48.0); HEMOGLOBIN 8.8 g/dL (12-16); IMMATURE GRANULOCYTES 0.7 % (0-5); LYMPHOCYTE ABS# 0.85 10x3/uL (1.18-3.74); LYMPHOCYTES 14.3 % (15-50); MCH 29.6 pg (26.0-34.0); MCHC 32.5 g/dL (31.0-37.0); MCV 91.2 fL (80.0-100.0); MEAN PLATELET VOLUME 9.8 fL (7.4-10.4); MONOCYTES 8.2 % (2-11); NEUTROPHIL ABS# 4.37 10x3/uL (1.56-6.13); NEUTROPHILS 73.6 % (40-80); PLATELET COUNT 217 10x3/uL (130-400); RBC 2.97 10x6/uL (4.00-5.40); RDW 15.6 % (11.5-14.5)
[2020-08-03 07:25] LABS: WBC 5.9 10x3/uL (4.8-10.8)
--- NOTE | 2020-08-03 07:27 | NUR ---
OFF BED LEIJA, BLACK WATERY STOOL. LINENS AND GOWN CHANGED. DOWN FOR COLONOSCOPY AT THIS TIME.
[2020-08-03 07:38] LABS: CALCIUM 7.9 mg/dL (8.5-10.1); CARBON DIOXIDE 26.5 mmol/L (21.0-32.0); CREATININE - SERUM 0.9 mg/dL (0.6-1.3); POTASSIUM - SERUM 3.5 mmol/L (3.5-5.1)
[2020-08-03 11:07] VITALS: BP 136/67
[2020-08-03 11:08] VITALS: Ht 160 cm; Wt 68.0 kg
--- NOTE | 2020-08-03 14:46 | OP ---
PATIENT NAME: DEBI MAGALLANES MEDICAL RECORD: [id number] :32 LOCATION:D.M2 D.2109 ADMISSION DATE:07/31/20 SURGEON: LAKEISHA WANG MD DATE OF OPERATION: 08/03/2020 PREOPERATIVE DIAGNOSIS: Unexplained melena and anemia. MEDICATION: Propofol per anesthesia. DESCRIPTION OF PROCEDURE: Colonoscopy was performed. The colonoscope was inserted through the rectum and advanced to the cecum, identified by the ileocecal valve and the appendiceal orifice. The colon was full of old blood, making visibility limited. The colonoscope was able to be traversed to the cecum. The colonoscopy was normal other than a few small diverticula in the sigmoid colon. Visibility was limited; however, no large lesions or masses were seen. The patient tolerated the procedure well. FINAL DIAGNOSIS: Limited visibility due to large amount of old dark stool, few diverticula. No large lesions visualized. PLAN: Due to her essentially normal EGD yesterday and normal colonoscopy today. I suspect an intermittent small bowel bleed. 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 At this time, we will continue supportive treatment and I will order a bleeding scan, but a multidisciplinary approach will be needed as to her treatment and risks versus benefit of any possible repeat angiography. TRANSINT:[id number] Voice Confirmation ID: [id number] DOCUMENT ID: [id number] LAKEISHA WANG MD at 1446 CC: [id number] DICTATION DATE: 08/03/20 0840 NEGATIVE STRIPPER: 08/03/20 0851 ADM IN [facility] [id number] [place] [address]
--- NOTE | 2020-08-03 14:46 | OP ---
PATIENT NAME: DEBI MAGALLANES MEDICAL RECORD: [id number] :32 LOCATION:D.M2 D.2108 ADMISSION DATE:07/31/20 SURGEON: LAKEISHA WANG MD DATE OF OPERATION: 08/02/2020 PREOPERATIVE DIAGNOSES: Anemia and melena. PROCEDURE: Upper endoscopy. MEDICATION: Propofol per anesthesia. DESCRIPTION OF PROCEDURE: Upper endoscopy was performed. The endoscope was advanced through the mouth and advanced to the second part of the duodenum. The entire examined esophagus was normal. In the gastric body was mild erythema consistent with gastritis. 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 This was cauterized with gold probe cautery. The remainder of the exam was normal. The patient tolerated the procedure well. FINAL DIAGNOSES: Normal esophagus, mild gastritis, biopsies taken. 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 This was treated with gold probe cautery. PLAN: Advance diet. Colonoscopy for a.m. TRANSINT:[id number] Voice Confirmation ID: [id number] DOCUMENT ID: [id number] LAKEISHA WANG MD at 1446 CC: [id number] DICTATION DATE: 08/03/20 0842 SENIOR INFORMATICA ETL DEVELOPER: 08/03/20 0900 ADM IN [facility] [address] [place] [address]
[2020-08-03 16:04] VITALS: BP 135/63
[2020-08-03 20:00] VITALS: BP 131/72
[2020-08-03 21:00] VITALS: BP 135/63
--- NOTE | 2020-08-03 23:22 | NUR ---
1914--PT SITTING UP IN BED, YELLING FOR SOMEONE TO HELP HER. SHE HAS PULLED HER TELEMETRY OFF & STATES THAT SHE ISN'T GOING HOME WITH THAT & THERE IS NO REASON TO MONITOR HER HEART. SHE WAS ALSO ATTEMPTING TO UNTANGLE HER IV TUBING TO RIGHT AC & REMOVE THAT IV. LEFT FOREARM IV FOUND ON DINNER TRAY. ASSISTED PT ONTO BEDPAN, VOIDED APPROXIMATELY 200ML YELLOW URINE. ASSITED WITH PERICARE. WARM BLANKETS PLACED ON PT.
[2020-08-04 04:00] VITALS: BP 122/76
--- NOTE | 2020-08-04 06:04 | NUR ---
PT RESTED QUIETLY THROUGHOUT NIGHT. C/O DISCOMFORT TO HER HEELS, ELEVATED ON PILLOW. REPOSITIONED IN BED, HOT COFFEE TO PT.
[2020-08-04 06:21] LABS: BASOPHILS 0.4 % (0-2); EOSINOPHILS 3.6 % (0-7); HEMOGLOBIN 8.7 g/dL (12-16); IMMATURE GRANULOCYTES 0.6 % (0-5); LYMPHOCYTE ABS# 0.84 10x3/uL (1.18-3.74); LYMPHOCYTES 16.8 % (15-50); MCH 29.7 pg (26.0-34.0); MCHC 32.2 g/dL (31.0-37.0); MCV 92.2 fL (80.0-100.0); MONOCYTES 7.4 % (2-11); NEUTROPHIL ABS# 3.56 10x3/uL (1.56-6.13); NEUTROPHILS 71.2 % (40-80); PLATELET COUNT 229 10x3/uL (130-400); RBC 2.93 10x6/uL (4.00-5.40); RDW 15.6 % (11.5-14.5)
--- NOTE | 2020-08-04 07:00 | NUR ---
PT LYING IN BED WITH EYES CLOSED. RAISES TO VERBAL STIMULI. RESP EVEN AND UNLABORED. O2 VIA NC AT 2LPM IN PLACE. ALERT AND ORIENTED TO PERSON AND PLACE. CONFUSED ABOUT TIME. DENIES NEEDS AT THIS TIME. CLIR. BED IN LOWEST POSITION. SIDE RAILS X2
[2020-08-04 08:01] VITALS: BP 131/70
[2020-08-04] MEDS ORDERED: FUROSEMIDE20 MG PO (09:37)
[2020-08-04] MEDS ORDERED: PROTONIX40 MG PO (09:37)
--- NOTE | 2020-08-04 11:00 | NUR ---
PT HAD LARGE BLACK LIQUID STOOL. LINENS AND GOWN CHANGED. PERICARE PROVIDED. DR RAMOS NOTIFIED. STILL OKAY TO DC BACK TO [facility]. PT DENIES ABD PAIN OR ANY DISCOMFORT. CLIR. BED IN LOWEST POSITION. SIDE RAILS X2
[2020-08-04 12:31] VITALS: BP 142/88
--- NOTE | 2020-08-04 16:17 | NUR ---
I have reviewed this patient and I concur with the Shift Assessment completed by the Licensed Practical Nurse today this shift.
[2020-08-04 17:32] VITALS: BP 136/75
[2020-08-04 19:00] VITALS: BP 95/73
[2020-08-05 00:37] VITALS: BP 110/56
[2020-08-05 05:25] VITALS: BP 150/75
--- NOTE | 2020-08-05 07:10 | NUR ---
REC'D N BED WITH EYES CLOSED EASILY TO AROUSED WHEN NAME IS CALLED. RESP EVEN AND UNLABORED WITH NO DISTRESS NOTED. CAN EXPRESS NEEDS AND WANTS. NO C/O NOTED OR VOICED. ASSESSMENT COMPLETED. C/L IN REACH AT BEDSIDE.
[2020-08-05 08:14] VITALS: BP 132/71
--- NOTE | 2020-08-05 11:43 | NUR ---
I have reviewed this patient and I concur with the Shift Assessment completed by the Licensed Practical Nurse today this shift.
[2020-08-05 12:24] VITALS: BP 131/56
[2020-08-05 17:26] VITALS: BP 127/80
[2020-08-05 21:03] VITALS: BP 116/65
[2020-08-06 00:51] VITALS: BP 136/70
[2020-08-06 05:22] VITALS: BP 157/86
--- NOTE | 2020-08-06 08:00 | NUR ---
PT RECEIVED AWAKE AND ALERT IN BED. PROTONIX GTT INFUSING. NO NEEDS AT PRESENT.
[2020-08-06 09:09] VITALS: BP 145/65
--- NOTE | 2020-08-06 12:00 | NUR ---
PT WITH IV PULLED OUT BY ACCIDENT. DRESSING APPLIED. PROTONIX DC'D THIS MORNING.
[2020-08-06 12:17] VITALS: BP 136/68
[2020-08-06 16:33] VITALS: BP 134/69
--- NOTE | 2020-08-06 18:23 | NUR ---
PT WITH FALL WHILE TRYING TO USE BSC, STATES LOST BALANCE. NOTED TO HAVE A LARGE SKIN TEAR TO LEFT FOREARM WHICH NURSE COVERED BACK WITH SKIN AND NON ADHERING DRESSING. ALSO WITH GOOSE EGG TO LEFT FOREHEAD WITH SMALL AMT OF BLEEDING. DRESSING APPLIED AND ICE PACK IN USE. DR RAMOS NOTIFIED AND CT HEAD ORDERED. PT WITH FALL ALARM IN PLACE. NO OTHER COMPLAINTS OF PAIN OR GROSS INJURIES NOTED.
[2020-08-06 20:56] VITALS: BP 173/69
--- NOTE | 2020-08-07 00:01 | NUR ---
TELEMETRY REMOVED, PER SOLDERING INSPECTOR.
[2020-08-07 04:13] VITALS: BP 139/67
[2020-08-07 09:19] VITALS: BP 134/57
--- NOTE | 2020-08-07 12:53 | NUR ---
Nutrition Follow-up: Pt confused. Nursing reports pt ate fairly well this AM. Diet: Regular, Soft PO intake: ~50% this AM No new wt; last wt: 150# (08/03) No new labs Meds noted: Lasix, KDur, Protonix, Colace, Oscal, Folate, Miralax -Encourage PO intake and honor food preferences within diet restrictions. -Offer nutrition supplements. -Need new wt. -RD will follow up within 3-4 days.
[2020-08-07 13:21] VITALS: BP 100/44; BP 203/89
--- NOTE | 2020-08-07 14:00 | NUR ---
REPORT CALLED TO [facility] TONEY. DRESSINGS TO FOREHEAD AND LEFT HAND CHANGED. FOREHEAD SWELLING IS DOWN FROM YESTERDAY. SKIN TEAR STILL IN GOOD POSITION. PT WITH BM ON BSC THAT WAS SOFT AND FORMED WITH DARK COLOR BUT NOT BLACK.
--- NOTE | 2020-08-07 18:33 | NUR ---
PT ASSISTED TO BSC TO VOID THEN BACK TO BED. TRANSPORT HERE NOW SO ASSIST TO WHEELCHAIR. PT IN BRIEF AND SCRUB BOTTOMS WHILE WEARING HER OWN SWEATSHIRT.
== END 2020-08-07 16:00 | disposition home or self-care (01) | DRG 378 ==
LOC: D.ER 12:39 → D.M2 14:23
PROVIDERS: Internal Medicine Gastroenterology; Internal Medicine Hematology & Oncology; ADMIT Family Medicine; ATTEND Family Medicine
PROC: 0W3P8ZZ Control Bleeding in Gastrointestinal Tract, Via Natural or Artificial Opening Endoscopic (ICD-10-PCS; 2020-08-02)
PROC: 0DJD8ZZ Inspection of Lower Intestinal Tract, Via Natural or Artificial Opening Endoscopic (ICD-10-PCS; principal; 2020-08-03 07:30)
DX: K55.21 Angiodysplasia of colon with hemorrhage (principal); F02.81 Dementia in other diseases classified elsewhere, unspecified severity, with behavioral disturbance; D64.9 Anemia, unspecified; G30.1 Alzheimer's disease with late onset; K21.9 Gastro-esophageal reflux disease without esophagitis; I10 Essential (primary) hypertension; E78.5 Hyperlipidemia, unspecified; I25.10 Atherosclerotic heart disease of native coronary artery without angina pectoris; E55.9 Vitamin D deficiency, unspecified; M19.91 Primary osteoarthritis, unspecified site; R26.89 Other abnormalities of gait and mobility; K59.01 Slow transit constipation; E03.8 Other specified hypothyroidism; E06.3 Autoimmune thyroiditis; D46.9 Myelodysplastic syndrome, unspecified; J44.9 Chronic obstructive pulmonary disease, unspecified; G35 Multiple sclerosis; Z87.891 Personal history of nicotine dependence; W18.30XA Fall on same level, unspecified, initial encounter

== ENCOUNTER → 2020-08-11 15:17 | Outpatient (CLI) | payer MEDICARE ==
[2020-08-03 11:08] VITALS: BMI 26.5
[~2020-08-11 15:17] MED LIST changes: +COLACE100 MG PO; +FERROUS SULFAT325 MG PO; +FUROSEMIDE20 MG PO; +FUROSEMIDE40 MG PO; +K-DUR20 MEQ PO; +NORVASC5 MG PO
[2020-08-11 16:05] LABS: BASOPHILS 0.2 % (0-2); EOSINOPHILS 3.5 % (0-7); HEMATOCRIT 27.4 % (36.0-48.0); HEMOGLOBIN 8.3 g/dL (12-16); IMMATURE GRANULOCYTES 0.5 % (0-5); LYMPHOCYTES 12.9 % (15-50); MCHC 30.3 g/dL (31.0-37.0); MCV 98.9 fL (80.0-100.0); MEAN PLATELET VOLUME 11.6 fL (7.4-10.4); MONOCYTES 7.8 % (2-11); NEUTROPHIL ABS# 6.41 10x3/uL (1.56-6.13); NEUTROPHILS 75.1 % (40-80); RBC 2.77 10x6/uL (4.00-5.40); RDW 16.2 % (11.5-14.5); WBC 8.5 10x3/uL (4.8-10.8)
[2020-08-11 16:09] LABS: PLATELET COUNT 390 10x3/uL (130-400)
[2020-08-11 16:31] LABS: ALBUMIN 2.8 g/dL (3.4-5.0); ANION GAP 17.6 mmol/L (8-16); BILIRUBIN - TOTAL 0.32 mg/dL (0.2-1.3); CALCIUM 8.8 mg/dL (8.5-10.1); CARBON DIOXIDE 22.1 mmol/L (21.0-32.0); CREATININE - SERUM 1.3 mg/dL (0.6-1.3); POTASSIUM - SERUM 4.7 mmol/L (3.5-5.1); PROTEIN - SERUM 6.1 g/dL (6.4-8.2)
== END | disposition home or self-care (01) ==
LOC: D.LABREF 15:17
PROVIDERS: ATTEND Family Medicine
DX: Z51.81 Encounter for therapeutic drug level monitoring (principal)

== ENCOUNTER → 2020-08-15 22:22 | Outpatient (CLI) | payer MEDICARE ==
[2020-08-03 11:08] VITALS: BMI 26.5
== END | disposition home or self-care (01) ==
LOC: D.LABREF 22:22
PROVIDERS: ATTEND Family Medicine
DX: Z51.81 Encounter for therapeutic drug level monitoring (principal)

== ENCOUNTER → 2020-08-16 20:21 | Outpatient (CLI) | payer MEDICARE ==
[2020-08-03 11:08] VITALS: BMI 26.5
[2020-08-16 20:48] LABS: BASOPHILS 0.3 % (0-2); EOSINOPHILS 1.9 % (0-7); HEMATOCRIT 23.2 % (36.0-48.0); IMMATURE GRANULOCYTES 0.5 % (0-5); LYMPHOCYTE ABS# 0.77 10x3/uL (1.18-3.74); LYMPHOCYTES 13.3 % (15-50); MCH 29.6 pg (26.0-34.0); MCHC 29.7 g/dL (31.0-37.0); MCV 99.6 fL (80.0-100.0); MEAN PLATELET VOLUME 11.3 fL (7.4-10.4); MONOCYTES 9.5 % (2-11); NEUTROPHIL ABS# 4.29 10x3/uL (1.56-6.13); NEUTROPHILS 74.5 % (40-80); PLATELET COUNT 371 10x3/uL (130-400); RBC 2.33 10x6/uL (4.00-5.40); RDW 16.9 % (11.5-14.5); WBC 5.8 10x3/uL (4.8-10.8)
[2020-08-16 21:02] LABS: HEMOGLOBIN 6.9 g/dL (12-16)
== END | disposition home or self-care (01) ==
LOC: D.LABREF 20:21
PROVIDERS: ATTEND Family Medicine
DX: Z51.81 Encounter for therapeutic drug level monitoring (principal)

== ENCOUNTER 2020-08-17 12:20 | Outpatient (CLI) | payer MEDICARE ==
[~2020-08-17] VITALS: Ht 160 cm; Wt 63.6 kg
[2020-08-17 13:21] VITALS: BP 122/60; Ht 160 cm; Wt 63.6 kg
--- NOTE | 2020-08-17 13:45 | NUR ---
FIRST UNIT OF PRBC'S STARTED VIA 20 G IV LEFT AC. INSTRUCTED PT TO CALL FOR ANY S/S OF TRANSFUSION REACTION (IF SHE FEELS ANY DIFFERENT THAN SHE DOES NOW). PT STATED UNDERSTANDING BUT IS FORGETFUL. SR UP X2 WITH CALL LIGHT IN REACH.
--- NOTE | 2020-08-17 14:00 | NUR ---
NO S/S OF TRANSFUSION REACTION NOTED.
--- NOTE | 2020-08-17 14:30 | NUR ---
LUNCH TRAY SERVED.
--- NOTE | 2020-08-17 15:45 | NUR ---
FIRST UNIT OF PRBC'S COMPLETED. NO S/S OF TRANSFUSION REACTION NOTED. SR UP X2 WITH CALL LIGHT IN REACH.
--- NOTE | 2020-08-17 16:07 | NUR ---
NO S/S OF TRANSFUSION REACTION NOTED FROM 2ND UNIT PRBC'S THAT WAS STARTED AT 1552. ASSISTED PT TO VOID AT THIS TIME.
--- NOTE | 2020-08-17 16:20 | NUR ---
COPY OF DC INSTRUCTIONS AND POST TRANSFUSION INSTRUCTIONS PLACED AT BEDSIDE TO BE GIVEN TO NH METER CALIBRATOR AT PT'S DISCHARGE.
--- NOTE | 2020-08-17 17:11 | NUR ---
1710 [facility] NOTIFIED OF RISK ADVISOR TIME. PT ALMOST READY
--- NOTE | 2020-08-17 17:45 | NUR ---
2ND UNIT OF PRBC'S COMPLETED. NO S/S OF TRANSFUSION REACTION NOTED. PLACED A NEW BRIEF ON PT. AWAITING CO VAN FOR TRANSPORT.
--- NOTE | 2020-08-17 17:58 | NUR ---
MONICA MILLS CALLED AND SAID HE IS STILL IN [place]. ASKED HIM IF HE WILL BE HERE BY 1900 FOR PICKUP AND HE SAID HE WILL.
== END 2020-08-17 18:57 | disposition home or self-care (01) ==
LOC: D.OPS 12:20
PROVIDERS: ATTEND Family Medicine
DX: J96.01 Acute respiratory failure with hypoxia (principal); F03.90 Unspecified dementia, unspecified severity, without behavioral disturbance, psychotic disturbance, mood disturbance, and anxiety; E87.6 Hypokalemia; G93.40 Encephalopathy, unspecified; D50.9 Iron deficiency anemia, unspecified; M62.81 Muscle weakness (generalized); R26.2 Difficulty in walking, not elsewhere classified; R48.8 Other symbolic dysfunctions; K92.2 Gastrointestinal hemorrhage, unspecified; D46.9 Myelodysplastic syndrome, unspecified; D72.829 Elevated white blood cell count, unspecified; J44.9 Chronic obstructive pulmonary disease, unspecified; E78.6 Lipoprotein deficiency; R13.11 Dysphagia, oral phase

== ENCOUNTER → 2020-08-21 18:19 | Outpatient (CLI) | payer MEDICARE ==
[2020-08-17 13:21] VITALS: BMI 24.8
[2020-08-21 19:03] LABS: EOSINOPHILS 2.7 % (0-7); HEMATOCRIT 32.2 % (36.0-48.0); HEMOGLOBIN 10.4 g/dL (12-16); LYMPHOCYTES 13.8 % (15-50); MCH 29.2 pg (26.0-34.0); MCHC 32.2 g/dL (31.0-37.0); MCV 90.7 fL (80.0-100.0); MEAN PLATELET VOLUME 8.8 fL (7.4-10.4); MONOCYTES 6.6 % (2-11); NEUTROPHILS 75.9 % (40-80); PLATELET COUNT 359 10x3/uL (130-400); RBC 3.55 10x6/uL (4.00-5.40); WBC 7.6 10x3/uL (4.8-10.8)
== END | disposition home or self-care (01) ==
LOC: D.LABREF 18:19
PROVIDERS: ATTEND Family Medicine
DX: D50.9 Iron deficiency anemia, unspecified (principal)

== ENCOUNTER → 2020-08-25 11:49 | Outpatient (CLI) | payer MEDICARE ==
[2020-08-17 13:21] VITALS: BMI 24.8
[2020-08-25 13:10] LABS: BACTERIA FEW HPF (NONE SEEN); BILIRUBIN NEGATIVE (NEGATIVE); KETONE NEGATIVE (NEGATIVE); NITRITE NEGATIVE (NEGATIVE); SQUAMOUS EPITHELIAL 0-5 HPF (0-4); UROBILINOGEN NORMAL mg/dL (< 2); WHITE CELLS - URINE 0-5 HPF (0-4)
== END | disposition home or self-care (01) ==
LOC: D.LABREF 11:49
PROVIDERS: ATTEND Family Medicine
DX: R41.0 Disorientation, unspecified (principal)

== ENCOUNTER → 2020-08-28 17:05 | Outpatient (CLI) | payer MEDICARE ==
[2020-08-17 13:21] VITALS: BMI 24.8
[2020-08-28 17:31] LABS: BASOPHILS 0.5 % (0-2); EOSINOPHILS 2.5 % (0-7); HEMATOCRIT 25.3 % (36.0-48.0); HEMOGLOBIN 8.3 g/dL (12-16); LYMPHOCYTES 12.4 % (15-50); MCH 29.5 pg (26.0-34.0); MCHC 32.7 g/dL (31.0-37.0); MCV 90.4 fL (80.0-100.0); MONOCYTES 8.2 % (2-11); NEUTROPHILS 76.4 % (40-80); RDW 17.1 % (11.5-14.5); WBC 6.5 10x3/uL (4.8-10.8)
[2020-08-28 17:34] LABS: PLATELET COUNT 245 10x3/uL (130-400)
== END | disposition home or self-care (01) ==
LOC: D.LABREF 17:05
PROVIDERS: ATTEND Family Medicine
DX: Z51.81 Encounter for therapeutic drug level monitoring (principal)

== ENCOUNTER → 2020-08-30 14:09 | Outpatient (CLI) | payer MEDICARE ==
[2020-08-17 13:21] VITALS: BMI 24.8
[2020-08-30 14:15] LABS: BASOPHILS 0.7 % (0-2); EOSINOPHILS 3.2 % (0-7); LYMPHOCYTES 12.1 % (15-50); MCH 29.7 pg (26.0-34.0); MCHC 32.9 g/dL (31.0-37.0); MCV 90.1 fL (80.0-100.0); MEAN PLATELET VOLUME 9.4 fL (7.4-10.4); MONOCYTES 9.6 % (2-11); NEUTROPHILS 74.4 % (40-80); PLATELET COUNT 210 10x3/uL (130-400); RDW 17.1 % (11.5-14.5); WBC 5.2 10x3/uL (4.8-10.8)
[2020-08-30 14:42] LABS: RBC 2.15 10x6/uL (4.00-5.40)
[2020-08-30 14:50] LABS: HEMATOCRIT 19.4 % (36.0-48.0); HEMOGLOBIN 6.4 g/dL (12-16)
== END | disposition home or self-care (01) ==
LOC: D.LABREF 14:09
PROVIDERS: ATTEND Family Medicine
DX: K92.2 Gastrointestinal hemorrhage, unspecified (principal)

== ENCOUNTER 2020-08-31 09:01 | Outpatient (CLI) | payer MEDICARE ==
[~2020-08-31] VITALS: Ht 160 cm; Wt 49.9 kg
[2020-08-31 11:46] VITALS: BP 107/73; Ht 160 cm; Wt 49.9 kg
--- NOTE | 2020-08-31 13:38 | NUR ---
PATIENT HERE FOR 2 UNITS PRBCS. IV STARTED IN RIGHT FOREARM X 2 ATTEMPTS WITH 20 GAUGE. NORMAL SALINE 500 ML INITIATED TO RUN WITH BLOOD. 1ST UNIT PRBS STARTED AT 1145 AFTER CONSENT SIGNED. RATE AT 75 ML/HR FOR 15 MINUTES, THEN INCREASED TO 225 ML/HR. PATIENT TOLERATED TRANSFUSION UNEVENTFUL. LUNCH SERVED, EATING AND TOLERATING WELL. 1ST UNIT COMPLETE AT 1310. LINE FLUSHED WITH SALINE. 1315-2ND UNIT STARTED AT 75 ML/HR FOR 15 MINUTES. 1330 RATE INCREASED TO 225 ML/HR.
--- NOTE | 2020-08-31 15:12 | NUR ---
1450 2ND UNIT COMPLETED. PATIENT TOLERATED WELL. LINE FLUSHED WITH SALINE. IV REMOVED WITH CATH INTACT. PATIENT ASSISTED UP TO WHEELCHAIR. TO BE DISCHARGED TO [facility] WHEN FIRER LOCOMOTIVE ARRIVES. DISCHARGE INSTRUCTIONS REVIEWED W PATIENT.
--- NOTE | 2020-08-31 15:56 | NUR ---
DISCHARGED TO [facility] CO TEACHER VIA WHEELCHAIR. PATIENT TOLERATED BLOOD TRANSFUSION WITHOUT EVENT
== END 2020-08-31 15:55 ==
LOC: D.OPS 09:01 → D.LAB 09:01 → D.OPS 15:55
PROVIDERS: ATTEND Family Medicine
DX: D64.9 Anemia, unspecified (principal)

== ENCOUNTER → 2020-09-05 22:06 | Outpatient (CLI) | payer MEDICARE ==
[2020-09-05 22:26] LABS: BASOPHILS 0.9 % (0-2); HEMATOCRIT 34.6 % (36.0-48.0); HEMOGLOBIN 11.1 g/dL (12-16); MCH 29.5 pg (26.0-34.0); MCV 92.2 fL (80.0-100.0); MEAN PLATELET VOLUME 9.6 fL (7.4-10.4); MONOCYTES 6.2 % (2-11); NEUTROPHILS 75.9 % (40-80); RBC 3.75 10x6/uL (4.00-5.40); RDW 18.3 % (11.5-14.5); WBC 6.9 10x3/uL (4.8-10.8)
[2020-09-05 23:05] LABS: PLATELET COUNT 326 10x3/uL (130-400)
== END | disposition home or self-care (01) ==
LOC: D.LABREF 22:06
PROVIDERS: ATTEND Family Medicine
DX: R68.89 Other general symptoms and signs (principal)